=== PATIENT | female | born 1990 | race Caucasian/White ===

== ENCOUNTER 2017-05-29 13:14 | Emergency (ER) | payer OTHER ==
[~2017-05-29] VITALS: Ht 160 cm; Wt 87.0 kg
--- NOTE | 2017-05-29 13:43 | EMERGENCY ROOM VISIT NOTE ---
ED Visit Note First contact with patient: 13:39 CHIEF COMPLAINT: Body Fluid exposure HPI: This 26-year-old female presents to the Emergency Department ambulatory for evaluation of a body fluid exposure when she was accidentally stuck with a dirty solid suture needle. Patient was suturing. The wound has already been cleansed. Bleeding is controlled. They deny numbness, tingling, or loss of motion. Source patient is known. History of the source patient is not known at this time. The patient works at [employer]. They have had the hepatitis B. vaccination, and titers are unknown. They believe their tetanus is up-to-date. Pain is 0/10. ALLERGIES: clindamycin MEDICATIONS: celexa PMH: none SOCIAL HISTORY: the patient does not smoke. She is employed by [employer] Physical Exam: VITALS: Nursing notes reviewed and vitals are stable. GENERAL: The 26-year-old female, in no acute distress, well developed, well nourished. SKIN: Warm and dry with good turgor. There are no abrasions. There is a solitary puncture ashok present at the distal left thumb. Bleeding is controlled. No edema. Capillary refill is 2+. MUSCULOSKELETAL: Patient has full active range of motion of the hand. Normal strength. NEURO: Gross sensation is intact across the hand. ED COURSE: I examined the patient. Option of HIV, hepatitis C, and hepatitis B testing was discussed with the patient. The risks, benefits, purpose, and limitations of the tests were explained to the patient and all of their questions were answered. They elected to proceed. I did perform pretest counseling and the appropriate consent forms were signed. Patient was given information on prevention of exposure and transmission as well as hospital confidentiality. Blood exposure handout was provided. Patient elected to decline HIV prophylaxis at this time. They will follow-up with worker's comp. Wound care instructions were provided. I discussed the case with Rashmi Yanes, employee health. In the past non [facility] providers were able to follow up with [facility] employee health. Also, an algorithm from Dr. Garcia found hanging in D pod dictation states the same. However, she stated that Rebecca will need to follow up with an employer approved worker's compensation doctor and cannot follow up with employee health. Rebecca was advised of this. The orders were placed in the computer. The source patient tested negative for HIV, Hepatitis C. Impression: Body fluid exposure Plan: Follow up with employee health for further evaluation, treatment, and test results. Vital Signs Date Time Temp Pulse Resp B/P (MAP) Pulse Ox O2 Delivery O2 Flow Rate FiO2 05/29/17 13:50 37.0 79 20 135/79 98 Room Air Laboratory Results Test 05/29/17 13:56 Hepatitis B Surface Antibody POS Hepatitis C Antibody NEG (NEG) HIV (1&2) Ab and P24 Ag, 4th Gener NEG (NEG) Departure Information Impression Primary Impression: Needle stick injury Dispostion Home / Self-Care Condition GOOD Referrals No Doctor, Assigned (PCP) Patient Instructions [facility] Additional Instructions Follow up with employee health for further evaluation, treatment, and test results.
[2017-05-29 13:50] VITALS: BP 135/79; PULSE 79; TEMP 37; O2SAT 98; Ht 160 cm; Wt 87.0 kg
[2017-05-29 15:14] LABS: HEPATITIS B AB POS
== END 2017-05-29 14:28 | disposition home or self-care (01) ==
LOC: EDBD 13:14 → C.ED 13:16 → C.EDD 14:28
DX: S61.032A Puncture wound without foreign body of left thumb without damage to nail, initial encounter (principal); W46.1XXA Contact with contaminated hypodermic needle, initial encounter; Y99.0 Civilian activity done for income or pay; Y92.238 Other place in hospital as the place of occurrence of the external cause; Y93.89 Activity, other specified; Z79.899 Other long term (current) drug therapy

== ENCOUNTER 2022-09-28 07:47 | Inpatient (IN) ==
[2022-09-28] MEDS ORDERED: OXYTOCIN 30 UNITS/500 ML BAG IV PRN ×2 (07:52)
[2022-09-28] MEDS ORDERED: LIDOCAINE 1% LOCAL 20 ML VIAL INFIL PRN (07:52)
[2022-09-28 08:20] LABS: Hemoglobin 10.9 g/dl (12.0-16.0); Mean Corpuscular Hemoglobin 30.1 pg (25.0-34.0); Mean Corpuscular Hgb Conc 34.1 g/dL (32.0-36.0); Mean Corpuscular Volume 88.4 fL (80.0-100.0); Mean Platelet Volume 10.3 fL (9.4-12.3); Platelet Count 220 K/uL (130-400); RDW Coefficient of Variation 12.9 % (11.5-14.5); RDW Standard Deviation 41.3 fL (36.4-46.3); Red Blood Count 3.62 M/uL (3.93-5.22); White Blood Count 8.66 K/ul (4.8-10.8)
[2022-09-28] MEDS: LACTATED RINGER'S 1,000 ML IV PRN ×4 (08:25→22:59)
--- NOTE | 2022-09-28 10:45 | History & Physical Report ---
Date of Service September 28, 2022 Assessment & Plan (1) Supervision of normal first : Plan: IUP at 40+ weeks for IOL because of post term cervical balloon placed successfully pitocin augmentatio has been started epidural analgesia if or when requested anticipate vaginal Admission and Anticipated Discharge Date Admission Date: September 28, 2022 History of Present Illness Primary Care Provider: Yaima Norbert Swan Patient is a 31 yo female EDC09/24/22 who presents at 40 4/7 weeks for IOL because of post term . complicated by diet controlled GDM. growth scans have been AGA. GBS -negative. Allergies Allergy/AdvReac Type Severity Reaction Status Date / Time clindamycin Allergy esophagitis Verified 09/27/22 15:38 Home Medications Medication Instructions Recorded Confirmed Type prenat.vits,campos,[id number] 1 tab PO DAILY 10/26/21 09/27/22 History calcium carbonate [Tums] PO PRN 02/07/22 09/27/22 History ondansetron HCl 4 mg tablet 4 mg PO Q6H PRN nausea and 03/13/22 09/27/22 Rx vomiting #20 tabs acetone (urine) test (Ketone Urine #50 ea 05/11/22 09/27/22 Rx Test strips) blood sugar diagnostic (OneTouch #150 ea 05/11/22 09/27/22 Rx Verio test strips) blood-glucose meter (OneTouch #1 ea 05/11/22 09/27/22 Rx Verio Flex Meter) lancets 33 gauge (OneTouch Delica #150 ea 05/11/22 09/27/22 Rx Lancets) Patient History Medical History (Updated 09/28/22 @ 09:14 by Estelle Trinidad RN) Gestational diabetes mellitus (GDM) History of chicken pox Surgical History Status post advanced surface ablation photorefractive keratectomy (PRK) [place] teeth extracted Family History Grandmother (Maternal) Colorectal cancer Denies family history of Ovarian cancer Breast cancer Social History Smoking Status: Never smoker Second Hand Exposure: No; Do You Dip or Chew Tobacco: No; Tobacco Cessation Education Requested by Patient: No Hx Alcohol Use: No Hx Substance Use: No Preferred Language: Tajik Communication Ability: Effective Pre School Teacher Required: No Beliefs That Will Affect Care: None marital status: marital status details: Celso Guzman (27) [phone] Current Living Situation: Spouse Current Living Situation Comment: Celso- current occupational status: employed current occupation: [employer] Other Information That Helps Us Care for You: No Feels Safe at Home: Yes Safety Concerns: Feels Safe At This Time Assistive Devices: None Review of Systems All systems reviewed & are unremarkable except as noted in HPI & below Physical Exam Constitutional: WD/WN, vitals as above Psychiatric: A+Ox3, euthymic affect Genitourinary: OB Exam Abdomen: + vertex, + estimated weight (7-8 pounds) and + irregular contractions Manual OB Exam: + cervical dilation fingertip, + cervical effacement 60% and + station -2 OB Exam Monitor Tracing: + external FHT monitor used, + external uterine monitor used, + category I and + normal FHT variability cervical balloon placed under direct visualization through the internal os without difficulty. 40cc of sterile water placed in the balloon. the balloon was then placed on traction and attached to her left thigh. she tolerated the procedure well. Results & Data ([facility]) Vital Signs (Past 12 Hours) Vital Signs Temp Pulse Resp BP 09/28/22 08:48 94 H 120/80 09/28/22 07:58 100 H 145/97 H 09/28/22 08:07 98.2 F 18 Coding Level of Care Code None Diagnoses Supervision of normal first Z34.00
[2022-09-28] MEDS ORDERED: BUPIVACAINE 0.25% 30 ML VIAL ONE (20:38)
[2022-09-28] MEDS ORDERED: fentaNYL citrate 100 MCG/2 ML VIAL ONE (20:38)
[2022-09-28] MEDS ORDERED: ePHEDrine sulfate 50 MG/ML AMP ONE (20:38)
[2022-09-28] MEDS ORDERED: LIDOCAINE 2%/EPINEPHRINE 1:200,000 20 ML SDV ONE (20:38)
[2022-09-28] MEDS ORDERED: SODIUM CHLORIDE 0.9% INJ 10 ML VIAL ONE (20:38)
[2022-09-28] MEDS ORDERED: fentaNYL 2MCG/ML ROPIVACAINE 1.25MG/ML 100 ML BAG EPI ONE (20:39)
[2022-09-28] MEDS ORDERED: ONDANSETRON INJ 2 MG/ML 2 ML VIAL IV STA (20:57)
[2022-09-28] MEDS ORDERED: ONDANSETRON INJ 2 MG/ML 2 ML VIAL ONE (21:01)
--- NOTE | 2022-09-28 22:11 | Anesthesiology Consultation ---
Date of Service September 28, 2022 Assessment & Plan ASA ASA2 Proposed Anesthesia Anesthesia Type: Labor Epidural Risk / Benefits Reviewed With: PT / POA / Parent / Guardian, Accepts Plan and Informed Consent Obtained History Height/Weight Height: 5 ft 3 in Weight: 105.687 kg Allergies Allergy/AdvReac Type Severity Reaction Status Date / Time clindamycin Allergy esophagitis Verified 09/27/22 15:38 Medications Home Medications Medication Instructions Recorded Confirmed Last Taken prenat.vits,campos,[id number] 1 tab PO DAILY 10/26/21 09/27/22 Unknown calcium carbonate [Tums] PO PRN 02/07/22 09/27/22 Unknown ondansetron HCl 4 mg tablet 4 mg PO Q6H PRN nausea and 03/13/22 09/27/22 Unknown vomiting #20 tabs acetone (urine) test (Ketone Urine #50 ea 05/11/22 09/27/22 Unknown Test strips) blood sugar diagnostic (OneTouch #150 ea 05/11/22 09/27/22 Unknown Verio test strips) blood-glucose meter (OneTouch #1 ea 05/11/22 09/27/22 Unknown Verio Flex Meter) lancets 33 gauge (OneTouch Delica #150 ea 05/11/22 09/27/22 Unknown Lancets) Active Medications Generic Name Dose Route Start Last Admin Trade Name Freq PRN Reason Stop Dose Admin Oxytocin 30 units in 500 mls @ 20 mls/hr 09/28/22 07:52 09/28/22 19:29 Pitocin IV 09/30/22 07:51 1.2 units/hr .Q24H PRN 20 mls/hr Labor Induction/Augmentation Titration Protocol 1.2 UNITS/HR Lactated Ringer's 1,000 mls @ 125 mls/hr 09/28/22 07:52 09/28/22 22:04 Lr IV 09/30/22 07:51 Infused .Q8H PRN Infusion L&D Protocol Protocol Past Medical History Medical History Gestational diabetes mellitus (GDM) History of chicken pox Exercise / Class Metabolic Activity II 4-5 Yardwork/Stairs/Walk up hill Past Family History Family History Grandmother (Maternal) Colorectal cancer Denies family history of Ovarian cancer Breast cancer Past Surgical History Surgical History Status post advanced surface ablation photorefractive keratectomy (PRK) [place] teeth extracted Past Anesthesia History No Hx of Anesthesia Complications and No Family Hx of Anesthesia Complications History of PONV No Hx of PONV and No Hx of Motion Sickness Social History Smoking Status: Never smoker Do You Dip or Chew Tobacco: No Hx Alcohol Use: No Hx Substance Use: No Review of Systems denies fever/cough/ colds/ chest pain/ SOB/ MARTINEZ denies MARTINEZ Physical Exam Vital Signs Last Vital Signs Temp 36.4 C L 09/28/22 21:35 Pulse 114 H 09/28/22 22:09 Resp 16 09/28/22 21:58 BP 113/61 09/28/22 22:03 Pulse Ox 100 09/28/22 22:09 ENMT Mouth: no TMJ abnormality and no dentition abnormality Thyromental Distance: > or= 3.5 Finger Breadths Mallampati Class: II Neck neck extension not limited Respiratory normal respiratory effort; no respiratory distress Auscultation: lungs clear to auscultation bilaterally Cardiovascular Rate/Rhythm: regular rate and regular rhythm Neurologic moves all extremities Psychiatric Orientation: alert and oriented x 3 Testing Laboratory Results 09/28/22 08:02 Blood Type O Positive 09/28/22 08:02 Antibody Screen NEGATIVE 09/28/22 08:02
[2022-09-28] MEDS ORDERED: ePHEDrine sulfate 50 MG/ML AMP IV PRN (22:12)
[2022-09-28] MEDS ORDERED: ONDANSETRON INJ 2 MG/ML 2 ML VIAL IV PRN (22:12)
[2022-09-28] MEDS ORDERED: NALOXONE HCL 0.4 MG/1 ML VIAL/CARP IV PRN (22:12)
[2022-09-28] MEDS ORDERED: fentaNYL 2MCG/ML ROPIVACAINE 1.25MG/ML 100 ML BAG EPI PRN (22:12)
[2022-09-28] MEDS ORDERED: diphenhydrAMINE 50 MG/ML VIAL IV PRN (22:12)
[2022-09-28] MEDS ORDERED: NALOXONE HCL 1 MG in SODIUM CHLORIDE 0.9% 1000ML 1,000 ML IV PRN (22:12)
[2022-09-28] MEDS ORDERED: NALBUPHINE HCL INJ 10 MG/ML AMP IV PRN (22:12)
[2022-09-29] MEDS: LACTATED RINGER'S 1,000 ML IV PRN (05:56)
[2022-09-29] MEDS ORDERED: LACTATED RINGER'S 1,000 ML IV SCH ×2 (07:15→16:00)
--- NOTE | 2022-09-29 07:18 | Labor Progress Brief Note ---
Date of Service September 29, 2022 Subjective After the patient has been pushing for 2 hours there is minimal descensus of the head. Patient is quite painful with her contractions and I feel she has not been able to push effectively because of her pain. A trial of vacuum was attempted after emptying her bladder for a small amount of urine, but through 3 contractions the head did not move at all. At this point calling arrest of descent. Discussed the options of continue to push with the patient and her hu sband in reducing her epidural versus proceeding with section at this time. They would like to proceed with section procedure and its risks were reviewed with the patient and all questions were answered to their satisfaction. Assessment & Plan Admission and Anticipated Discharge Date Admission Date: September 28, 2022 Physical Exam Constitutional: WD/WN, vitals as above Psychiatric: A+Ox3, euthymic affect Results & Data ([facility]) Vital Signs (Past 12 Hours) Vital Signs Temp Pulse Resp BP Pulse Ox 09/29/22 07:09 117 H 99 09/29/22 07:05 112 H 131/80 09/29/22 07:04 110 H 98 09/29/22 06:59 110 H 99 09/29/22 06:54 104 H 98 09/29/22 06:49 104 H 142/89 H 97 09/29/22 06:44 20 09/29/22 06:44 112 H 20 146/86 H 98 09/29/22 06:39 96 H 99 09/29/22 06:35 103 H 135/104 H 94 09/29/22 06:34 96 H 100 09/29/22 06:29 93 H 100 09/29/22 06:24 96 H 100 09/29/22 06:19 102 H 98 09/29/22 06:20 102 H 142/91 H 09/29/22 06:14 104 H 100 09/29/22 06:09 107 H 100 09/29/22 06:05 100 H 155/63 H 09/29/22 06:04 103 H 100 09/29/22 05:59 105 H 96 09/29/22 05:54 96 H 100 09/29/22 05:53 100 H 94 09/29/22 05:49 104 H 100 09/29/22 05:50 94 H 130/85 09/29/22 05:44 103 H 99 09/29/22 05:39 106 H 100 09/29/22 05:35 103 H 137/105 H 09/29/22 05:34 108 H 100 09/29/22 05:29 106 H 99 09/29/22 05:24 110 H 100 09/29/22 05:21 104 H 138/79 09/29/22 05:19 104 H 99 09/29/22 05:14 99 H 100 09/29/22 05:10 20 09/29/22 05:10 98.1 F 20 09/29/22 05:09 109 H 99 09/29/22 05:06 98 H 137/76 09/29/22 05:04 117 H 99 09/29/22 04:59 113 H 99 09/29/22 04:54 109 H 100 09/29/22 04:49 109 H 100 09/29/22 04:50 102 H 133/78 09/29/22 04:44 104 H 100 09/29/22 04:39 100 H 100 09/29/22 04:34 112 H 133/82 99 09/29/22 04:29 113 H 99 09/29/22 04:24 113 H 100 09/29/22 04:19 112 H 20 133/83 98 09/29/22 04:14 110 H 100 09/29/22 04:11 20 09/29/22 04:11 98.1 F 20 09/29/22 04:09 107 H 100 09/29/22 04:04 102 H 130/77 99 09/29/22 03:59 114 H 98 09/29/22 03:54 112 H 100 09/29/22 03:49 109 H 131/76 100 09/29/22 03:44 110 H 98 09/29/22 03:43 114 H 91 09/29/22 03:39 114 H 100 09/29/22 03:34 103 H 99 09/29/22 03:35 102 H 121/70 09/29/22 03:29 102 H 99 09/29/22 03:24 102 H 99 09/29/22 03:20 100 H 129/73 09/29/22 03:19 98 H 100 09/29/22 03:14 108 H 99 09/29/22 03:09 118 H 100 09/29/22 03:04 105 H 115/60 100 09/29/22 02:59 107 H 100 09/29/22 02:54 117 H 100 09/29/22 02:50 104 H 119/63 09/29/22 02:49 105 H 100 09/29/22 02:44 103 H 100 09/29/22 02:41 112 H 92 09/29/22 02:39 97 H 99 09/29/22 02:36 107 H 140/63 09/29/22 02:34 104 H 98 09/29/22 02:29 104 H 99 09/29/22 02:24 109 H 97 09/29/22 02:19 107 H 16 121/63 97 09/29/22 02:14 97 H 98 09/29/22 02:09 101 H 97 09/29/22 02:04 93 H 98 09/29/22 02:05 117 H 133/74 09/29/22 01:59 95 H 97 09/29/22 01:54 101 H 98 09/29/22 01:49 96 H 111/59 L 98 09/29/22 01:44 96 H 98 09/29/22 01:39 93 H 98 09/29/22 01:35 90 114/62 09/29/22 01:34 103 H 97 09/29/22 01:29 93 H 97 09/29/22 01:24 100 H 97 09/29/22 01:19 92 H 104/56 L 98 09/29/22 01:14 90 97 09/29/22 01:09 94 H 97 09/29/22 01:04 85 98 09/29/22 01:05 84 16 100/55 L 09/29/22 00:59 91 H 97 09/29/22 00:54 92 H 97 09/29/22 00:51 81 101/54 L 09/29/22 00:49 89 98 09/29/22 00:44 82 98 09/29/22 00:39 98 H 99 09/29/22 00:34 83 107/56 L 98 09/29/22 00:29 84 98 09/29/22 00:24 96 H 99 09/29/22 00:20 85 111/57 L 09/29/22 00:19 84 98 09/29/22 00:14 90 98 09/29/22 00:09 89 98 09/29/22 00:07 16 09/29/22 00:07 97.9 F 16 09/29/22 00:04 92 H 99 09/29/22 00:05 91 H 122/72 09/28/22 23:59 73 98 09/28/22 23:54 110 H 100 09/28/22 23:49 82 96/55 L 98 09/28/22 23:44 86 98 09/28/22 23:39 89 97 09/28/22 23:34 81 94/54 L 97 09/28/22 23:29 86 98 09/28/22 23:24 85 97 09/28/22 23:19 80 91/54 L 98 09/28/22 23:14 80 98 09/28/22 23:09 88 99 09/28/22 23:06 87 103/59 L 09/28/22 23:04 16 09/28/22 23:04 97.9 F 85 16 98 09/28/22 22:59 90 99 09/28/22 22:54 99 H 98 09/28/22 22:49 92 H 108/59 L 98 09/28/22 22:44 92 H 97 09/28/22 22:39 88 98 09/28/22 22:35 87 107/59 L 09/28/22 22:34 89 98 09/28/22 22:29 87 97 09/28/22 22:24 91 H 98 09/28/22 22:19 16 09/28/22 22:19 95 H 16 104/57 L 98 09/28/22 22:14 103 H 98 09/28/22 22:09 114 H 100 09/28/22 22:04 85 100 09/28/22 22:03 100 H 113/61 09/28/22 21:59 95 H 100 09/28/22 21:58 85 16 109/56 L 09/28/22 21:54 100 09/28/22 21:54 106 H 09/28/22 21:54 98 H 94/51 L 09/28/22 21:51 94 H 92/51 L 09/28/22 21:49 98 09/28/22 21:49 86 09/28/22 21:49 90 107/57 L 09/28/22 21:44 72 100 09/28/22 21:45 75 96/61 L 09/28/22 21:39 101 H 109/58 L 100 09/28/22 20:58 97.7 F 09/28/22 21:35 97.5 F L 09/28/22 21:34 108 H 100 09/28/22 21:33 98 H 115/63 09/28/22 21:31 96 H 18 116/58 L 09/28/22 21:29 93 H 100 09/28/22 21:28 87 18 120/73 09/28/22 21:24 99 H 100 09/28/22 21:25 81 121/66 09/28/22 21:22 18 09/28/22 21:22 101 H 18 134/87 09/28/22 21:19 99 H 100 09/28/22 21:18 90 133/80 09/28/22 21:14 99 H 94 09/28/22 21:09 90 99 09/28/22 21:04 94 H 100 09/28/22 20:59 98 H 100 09/28/22 20:54 90 100 09/28/22 20:49 100 09/28/22 20:49 89 09/28/22 20:49 81 123/67 09/28/22 20:24 81 114/70 09/28/22 19:19 18 09/28/22 19:19 82 18 113/77 Coding Level of Care Code None
--- NOTE | 2022-09-29 07:38 | Anesthesiology Consultation ---
Date of Service September 29, 2022 Assessment & Plan Chart Review Chart Review: Acceptable Risk for Surgery Consults Requested none ASA ASA2E Proposed Anesthesia Anesthesia Type: Spinal Risk / Benefits Reviewed With: PT / POA / Parent / Guardian, Accepts Plan and Informed Consent Obtained Additional Comments: The epidural appears to be inadequately controlling pain. The patient stated having back and lower abdominal pain. I spoke to the patient about the potential of a high spinal. I discussed the risks and benefits of a spinal vs general anesthetic. The patient and family member were understanding. History Surgery Operation Date: 09/29/22 07:45 Proposed Procedures p Section in LD - Yeny Simons MD, FACOG Height/Weight Height: 5 ft 3 in Weight: 105.687 kg Allergies Allergy/AdvReac Type Severity Reaction Status Date / Time clindamycin Allergy esophagitis Verified 09/27/22 15:38 Medications Home Medications Medication Instructions Recorded Confirmed Last Taken prenat.vits,campos,[id number] 1 tab PO DAILY 10/26/21 09/27/22 Unknown calcium carbonate [Tums] PO PRN 02/07/22 09/27/22 Unknown ondansetron HCl 4 mg tablet 4 mg PO Q6H PRN nausea and 03/13/22 09/27/22 Unknown vomiting #20 tabs acetone (urine) test (Ketone Urine #50 ea 05/11/22 09/27/22 Unknown Test strips) blood sugar diagnostic (OneTouch #150 ea 05/11/22 09/27/22 Unknown Verio test strips) blood-glucose meter (OneTouch #1 ea 05/11/22 09/27/22 Unknown Verio Flex Meter) lancets 33 gauge (OneTouch Delica #150 ea 05/11/22 09/27/22 Unknown Lancets) Active Medications Generic Name Dose Route Start Last Admin Trade Name Freq PRN Reason Stop Dose Admin Oxytocin 30 units in 500 mls @ 0 mls/hr 09/28/22 07:52 09/29/22 07:01 Pitocin IV 09/30/22 07:51 0 units/hr .Q0M PRN 0 mls/hr Labor Induction/Augmentation Titration Protocol 0 UNITS/HR Lactated Ringer's 1,000 mls @ 125 mls/hr 09/28/22 07:52 09/29/22 06:16 Lr IV 09/30/22 07:51 125 mls/hr .Q8H PRN Infusion L&D Protocol Protocol Ondansetron HCl 4 mg 09/28/22 22:12 09/29/22 04:05 Ondansetron Inj 2 Mg/Ml 2 Ml Vial IV 09/29/22 22:11 4 mg Q6H PRN Administration Nausea &/or Vomiting Ropivacaine 100 ml 09/28/22 22:12 09/29/22 02:41 Fentanyl 2mcg/Ml Ropivacaine 1.25mg/Ml 100 Ml Bag EPI 09/29/22 22:11 100 ml PRN PRN Administration Pain R/T Labor Protocol NPO Date Last Intake of Fluids: 09/29/22 Time Last Intake of Fluids: 00:00 Date Last Intake of Solids: 09/29/22 Time Last Intake of Solids: 00:00 Past Medical History Medical History Gestational diabetes mellitus (GDM) History of chicken pox Exercise / Class Metabolic Activity II 4-5 Yardwork/Stairs/Walk up hill Past Family History Family History Grandmother (Maternal) Colorectal cancer Denies family history of Ovarian cancer Breast cancer Past Surgical History Surgical History Status post advanced surface ablation photorefractive keratectomy (PRK) [place] teeth extracted Past Anesthesia History No Hx of Anesthesia Complications and No Family Hx of Anesthesia Complications History of PONV No Hx of PONV and No Hx of Motion Sickness Social History Smoking Status: Never smoker Do You Dip or Chew Tobacco: No Hx Alcohol Use: No Hx Substance Use: No Physical Exam Vital Signs Last Vital Signs Temp 98.1 F 09/29/22 05:10 Pulse 111 H 09/29/22 07:29 Resp 20 09/29/22 06:44 BP 131/66 09/29/22 07:20 Pulse Ox 97 09/29/22 07:29 ENMT Mouth: no dentition abnormality Thyromental Distance: > or= 3.5 Finger Breadths Mallampati Class: II Neck normal visual inspection Respiratory normal respiratory effort Auscultation: lungs clear to auscultation bilaterally Cardiovascular Rate/Rhythm: regular rate and regular rhythm Testing Laboratory Results 09/28/22 08:02 Blood Type O Positive 09/28/22 08:02 Antibody Screen NEGATIVE 09/28/22 08:02
[2022-09-29] MEDS ORDERED: MoRPHine SULFATE PF 1 MG/ML 10 ML AMP/VIAL ONE (07:39)
[2022-09-29] MEDS ORDERED: fentaNYL citrate 100 MCG/2 ML VIAL ONE (07:39)
[2022-09-29] MEDS ORDERED: OXYTOCIN 10 UNITS/ML 10ML VIAL ONE (07:42)
[2022-09-29] MEDS ORDERED: CITRIC ACID/SODIUM CITRATE 15 ML UDC PO ONE (07:48)
[2022-09-29] MEDS ORDERED: PHENYLEPHRINE 100MCG/ML 5ML SYR ONE (08:10)
[2022-09-29] MEDS ORDERED: ONDANSETRON INJ 2 MG/ML 2 ML VIAL ONE (08:18)
[2022-09-29] MEDS ORDERED: OXYTOCIN 10 UNITS/ML 10ML VIAL IM ONE (08:28)
[2022-09-29] MEDS ORDERED: diphenhydrAMINE 50 MG/ML VIAL IV PRN (09:01)
[2022-09-29] MEDS ORDERED: MEPERIDINE HCL 25 MG/ML CARP/VIAL IV PRN (09:01)
[2022-09-29] MEDS ORDERED: LACTATED RINGER'S 500 ML IV PRN (09:01)
[2022-09-29] MEDS ORDERED: MoRPHine SULFATE PF 1 MG/ML 10 ML AMP/VIAL INT SPINAL ONE (09:01)
[2022-09-29] MEDS ORDERED: ePHEDrine sulfate 50 MG/ML AMP IV PRN (09:01)
[2022-09-29] MEDS ORDERED: ONDANSETRON INJ 2 MG/ML 2 ML VIAL IV PRN (09:01)
[2022-09-29] MEDS ORDERED: NALOXONE HCL 0.08 MG in SYRINGE 1.8 ML IV PRN (09:01)
[2022-09-29] MEDS ORDERED: NALOXONE HCL 1 MG in SODIUM CHLORIDE 0.9% 1000ML 1,000 ML IV PRN (09:01)
[2022-09-29] MEDS ORDERED: NALBUPHINE HCL INJ 10 MG/ML AMP IV PRN (09:01)
[2022-09-29] MEDS ORDERED: NALOXONE HCL 0.4 MG/1 ML VIAL/CARP IV PRN (09:01)
--- NOTE | 2022-09-29 09:02 | Anesthesia Procedure Note ---
Date of Service September 29, 2022 Anesthesia Post Epidural Note Vital Signs Vital Signs: Temp Pulse Resp BP Pulse Ox 98.1 F 113 H 20 132/78 97 09/29/22 05:10 09/29/22 07:54 09/29/22 06:44 09/29/22 07:51 09/29/22 07:54 Pain Intensity Bilateral Lower Abdomen: Pain Intensity: 5 Notes Mental Status: alert / awake / arousable and participated in evaluation Nausea / Vomiting: adequately controlled Pain: adequately controlled Airway Patency, RR, SpO2: stable & adequate BP & HR: stable & adequate Hydration State: stable & adequate Neuraxial Anesthesia: was administered and sensory block is resolving Anesthetic Complications: no major complications apparent and Pt Satisfied with anesthetic care Epidural: Removed without complications and With tip intact
[2022-09-29] MEDS ORDERED: NO NARCOTICS OR SEDATIVES SCH (09:15)
[2022-09-29] MEDS ORDERED: DC INTRASPINAL MORPHINE SCH (09:15)
[2022-09-29] MEDS ORDERED: SODIUM CHLORIDE 0.9% 1000ML 1,000 ML IV SCH (09:15)
--- NOTE | 2022-09-29 09:15 | Post Operative Brief Note ---
[facility] Immediate Post Op with CF Date of Surgery September 29, 2022 Pre & Post Diagnosis Operation Date: 09/29/22 07:45 Pre-Op Diagnosis: INDUCTION; failed vacuum; arrest of descent I identified the patient and participated in the time-out.: Yes Procedure Operation Date: 09/29/22 07:45 Actual Procedures p Section in LD; delivery of live female at 0822 - Siomara Camacho MD Surgeon Yeny Simons MD, FACOG [employer] Siomara Camacho MD Estimated Blood Loss 500 Findings Consistent with Post-Op Diagnosis Drains Jett Catheter (inserted in labor room; concentrated yellow urine) Anesthesia Type Spinal Complications none Disposition Accompanied Patient To Recovery: Yes
--- NOTE | 2022-09-29 09:40 | Anesthesiology Progress Note ---
Date of Service September 29, 2022 Anesthesia Post Procedure Vital Signs Vital Signs: Temp Pulse Resp BP Pulse Ox 09/29/22 09:35 92 H 123/77 09/29/22 09:34 84 100 09/29/22 09:29 93 H 97 09/29/22 09:24 89 100 09/29/22 09:19 90 123/76 100 09/29/22 07:54 113 H 97 09/29/22 07:53 100 H 88 L 09/29/22 07:51 116 H 132/78 09/29/22 07:49 102 H 99 09/29/22 07:44 110 H 97 09/29/22 07:39 107 H 97 09/29/22 07:34 107 H 98 09/29/22 07:35 111 H 148/96 H 09/29/22 07:29 111 H 97 09/29/22 07:24 107 H 98 09/29/22 07:20 103 H 131/66 09/29/22 07:19 102 H 98 09/29/22 07:14 109 H 98 09/29/22 07:09 117 H 99 09/29/22 07:05 112 H 131/80 09/29/22 07:04 110 H 98 09/29/22 06:59 110 H 99 09/29/22 06:54 104 H 98 09/29/22 06:49 104 H 142/89 H 97 09/29/22 06:44 20 09/29/22 06:44 112 H 20 146/86 H 98 09/29/22 06:39 96 H 99 09/29/22 06:35 103 H 135/104 H 94 09/29/22 06:34 96 H 100 09/29/22 06:29 93 H 100 09/29/22 06:24 96 H 100 09/29/22 06:19 102 H 98 09/29/22 06:20 102 H 142/91 H 09/29/22 06:14 104 H 100 09/29/22 06:09 107 H 100 09/29/22 06:05 100 H 155/63 H 09/29/22 06:04 103 H 100 09/29/22 05:59 105 H 96 09/29/22 05:54 96 H 100 09/29/22 05:53 100 H 94 09/29/22 05:49 104 H 100 09/29/22 05:50 94 H 130/85 09/29/22 05:44 103 H 99 09/29/22 05:39 106 H 100 09/29/22 05:35 103 H 137/105 H 09/29/22 05:34 108 H 100 09/29/22 05:29 106 H 99 09/29/22 05:24 110 H 100 09/29/22 05:21 104 H 138/79 09/29/22 05:19 104 H 99 09/29/22 05:14 99 H 100 09/29/22 05:10 20 09/29/22 05:10 98.1 F 20 09/29/22 05:09 109 H 99 09/29/22 05:06 98 H 137/76 09/29/22 05:04 117 H 99 09/29/22 04:59 113 H 99 09/29/22 04:54 109 H 100 09/29/22 04:49 109 H 100 09/29/22 04:50 102 H 133/78 09/29/22 04:44 104 H 100 09/29/22 04:39 100 H 100 09/29/22 04:34 112 H 133/82 99 09/29/22 04:29 113 H 99 09/29/22 04:24 113 H 100 09/29/22 04:19 112 H 20 133/83 98 09/29/22 04:14 110 H 100 09/29/22 04:11 20 09/29/22 04:11 98.1 F 20 09/29/22 04:09 107 H 100 09/29/22 04:04 102 H 130/77 99 09/29/22 03:59 114 H 98 09/29/22 03:54 112 H 100 09/29/22 03:49 109 H 131/76 100 09/29/22 03:44 110 H 98 09/29/22 03:43 114 H 91 09/29/22 03:39 114 H 100 09/29/22 03:34 103 H 99 09/29/22 03:35 102 H 121/70 09/29/22 03:29 102 H 99 09/29/22 03:24 102 H 99 09/29/22 03:20 100 H 129/73 09/29/22 03:19 98 H 100 09/29/22 03:14 108 H 99 09/29/22 03:09 118 H 100 09/29/22 03:04 105 H 115/60 100 09/29/22 02:59 107 H 100 09/29/22 02:54 117 H 100 09/29/22 02:50 104 H 119/63 09/29/22 02:49 105 H 100 09/29/22 02:44 103 H 100 09/29/22 02:41 112 H 92 09/29/22 02:39 97 H 99 09/29/22 02:36 107 H 140/63 09/29/22 02:34 104 H 98 09/29/22 02:29 104 H 99 09/29/22 02:24 109 H 97 09/29/22 02:19 107 H 16 121/63 97 09/29/22 02:14 97 H 98 09/29/22 02:09 101 H 97 09/29/22 02:04 93 H 98 09/29/22 02:05 117 H 133/74 09/29/22 01:59 95 H 97 09/29/22 01:54 101 H 98 09/29/22 01:49 96 H 111/59 L 98 09/29/22 01:44 96 H 98 09/29/22 01:39 93 H 98 09/29/22 01:35 90 114/62 09/29/22 01:34 103 H 97 09/29/22 01:29 93 H 97 09/29/22 01:24 100 H 97 09/29/22 01:19 92 H 104/56 L 98 09/29/22 01:14 90 97 09/29/22 01:09 94 H 97 09/29/22 01:04 85 98 09/29/22 01:05 84 16 100/55 L 09/29/22 00:59 91 H 97 09/29/22 00:54 92 H 97 09/29/22 00:51 81 101/54 L 09/29/22 00:49 89 98 09/29/22 00:44 82 98 09/29/22 00:39 98 H 99 09/29/22 00:34 83 107/56 L 98 09/29/22 00:29 84 98 09/29/22 00:24 96 H 99 09/29/22 00:20 85 111/57 L 09/29/22 00:19 84 98 09/29/22 00:14 90 98 09/29/22 00:09 89 98 09/29/22 00:07 16 09/29/22 00:07 97.9 F 16 09/29/22 00:04 92 H 99 09/29/22 00:05 91 H 122/72 09/28/22 23:59 73 98 09/28/22 23:54 110 H 100 09/28/22 23:49 82 96/55 L 98 09/28/22 23:44 86 98 09/28/22 23:39 89 97 09/28/22 23:34 81 94/54 L 97 09/28/22 23:29 86 98 09/28/22 23:24 85 97 09/28/22 23:19 80 91/54 L 98 09/28/22 23:14 80 98 09/28/22 23:09 88 99 09/28/22 23:06 87 103/59 L 09/28/22 23:04 16 09/28/22 23:04 97.9 F 85 16 98 09/28/22 22:59 90 99 09/28/22 22:54 99 H 98 09/28/22 22:49 92 H 108/59 L 98 09/28/22 22:44 92 H 97 09/28/22 22:39 88 98 09/28/22 22:35 87 107/59 L 09/28/22 22:34 89 98 09/28/22 22:29 87 97 09/28/22 22:24 91 H 98 09/28/22 22:19 16 09/28/22 22:19 95 H 16 104/57 L 98 09/28/22 22:14 103 H 98 09/28/22 22:09 114 H 100 09/28/22 22:04 85 100 09/28/22 22:03 100 H 113/61 09/28/22 21:59 95 H 100 09/28/22 21:58 85 16 109/56 L 09/28/22 21:54 100 09/28/22 21:54 106 H 09/28/22 21:54 98 H 94/51 L 09/28/22 21:51 94 H 92/51 L 09/28/22 21:49 98 09/28/22 21:49 86 09/28/22 21:49 90 107/57 L 09/28/22 21:44 72 100 09/28/22 21:45 75 96/61 L 09/28/22 21:39 101 H 109/58 L 100 09/28/22 20:58 97.7 F 09/28/22 21:35 97.5 F L 09/28/22 21:34 108 H 100 09/28/22 21:33 98 H 115/63 09/28/22 21:31 96 H 18 116/58 L 09/28/22 21:29 93 H 100 09/28/22 21:28 87 18 120/73 09/28/22 21:24 99 H 100 09/28/22 21:25 81 121/66 09/28/22 21:22 18 09/28/22 21:22 101 H 18 134/87 09/28/22 21:19 99 H 100 09/28/22 21:18 90 133/80 09/28/22 21:14 99 H 94 09/28/22 21:09 90 99 09/28/22 21:04 94 H 100 09/28/22 20:59 98 H 100 09/28/22 20:54 90 100 09/28/22 20:49 100 09/28/22 20:49 89 09/28/22 20:49 81 123/67 09/28/22 20:24 81 114/70 09/28/22 19:19 18 09/28/22 19:19 82 18 113/77 09/28/22 18:57 18 09/28/22 18:57 97.7 F 18 09/28/22 18:50 90 116/81 09/28/22 18:18 80 118/79 09/28/22 17:48 84 121/79 09/28/22 17:18 72 121/82 09/28/22 16:48 93 H 119/88 09/28/22 16:30 97.7 F 09/28/22 16:20 82 124/84 09/28/22 15:49 75 119/80 09/28/22 15:18 86 117/78 09/28/22 14:48 85 126/77 09/28/22 14:20 78 116/89 09/28/22 14:19 79 129/88 09/28/22 13:48 83 113/77 09/28/22 13:18 86 129/84 09/28/22 12:55 18 09/28/22 12:55 97.9 F 18 09/28/22 12:54 61 110/64 09/28/22 12:18 82 116/78 09/28/22 11:48 78 119/84 09/28/22 11:18 86 117/77 09/28/22 10:50 87 125/78 Pain Intensity Bilateral Lower Abdomen: Pain Intensity: 5 Transfer of Care Handoff Completed per policy Notes Mental Status: alert / awake / arousable and participated in evaluation Nausea / Vomiting: adequately controlled Pain: adequately controlled Airway Patency, RR, SpO2: stable & adequate BP & HR: stable & adequate Hydration State: stable & adequate Neuraxial Anesthesia: was administered and sensory block is resolving Anesthetic Complications: no major complications apparent and Pt Satisfied with anesthetic care
[2022-09-29] MEDS ORDERED: ACETAMINOPHEN 1,000 MG/100 ML VIAL IV PRN (09:52)
[2022-09-29] MEDS ORDERED: ACETAMINOPHEN 500 MG TAB PO PRN (09:53)
--- NOTE | 2022-09-29 10:05 | Operative Report ---
PG Post Operative Report Pre & Post Diagnosis Operation Date: 09/29/22 07:45 Pre-Op Diagnosis: INDUCTION; failed vacuum; arrest of descent Post-Op Diagnosis: same I identified the patient and participated in the time-out.: Yes Procedure Operation Date: 09/29/22 07:45 Actual Procedures p Section in LD; delivery of live female at 0822 - Siomara Camacho MD Surgeon Yeny Simons MD, FACOG Spa Receptionist Siomara Camacho MD Estimated Blood Loss 400 Findings Consistent with Post-Op Diagnosis Uterus was gravid and consistent with a term in size. Bilateral ovaries and fallopian tubes were grossly normal. There is a tiny sessile fibroid on the left fundus. Specimens placenta to hold Drains Jett to straight drainage- clear urine at the end of the case. Anesthesia Type Spinal Complications none Disposition Accompanied Patient To Recovery: Yes Indications Patient has been induced for postterm . She progressed to full dilation and pushed for 2 hours with no appreciable descent. From +1 station. Patient had poor pain control at this time and was not pushing effectively. Vacuum was attempted through 3 contractions but the presenting part did not descend at all. At that point it was decided that section would be a prudent decision. After discussion with the patient and her and all her questions were answered, consent was signed and they were ready to proceed. Description of Procedure After the patient received adequate subarachnoid block she was prepped and draped in usual sterile fashion. A low transverse skin incision was made with a scalpel and carried the fascia with the same Scalpel. The fascial incision was then extended transversely with Singh scissors. The edges of the fascia were then grasped with Shruthi clamps and the underlying rectus muscles bluntly sharply dissected off of the underlying fascia. The rectus muscles were then bluntly divided in the midline and the underlying peritoneum elevated and entered bluntly. The bladder was then taken down off the anterior surface of the uterus with Metzenbaum scissors and placed behind the bladder blade. Lower uterine segment was entered with a scalpel and extended transversely . The vertex was impacted in the pelvis but was able to be freed up and delivered into the incision with moderate fundal pressure. Rest of the delivered easily. She was vigorous and moving all 4 limbs after stimulation. Cord was clamped and cut and the infant was handed off to the technology program manager and nursery team in attendance. The placenta was then manually removed and the uterus exteriorized and covered with a clean lap sponge. Uterine cavity was then swept for any retained tissue or membranes. Lower edge of the uterine incision was then grasped with T clamps. There is bleeding along the left side of the uterine incision and this was secured with a [id number]-[id number] stitch of 0 Monocryl. The rest of the uterine incision was then closed in a running locking imbricating fashion with 0 Monocryl in 2 layers. 2 bleeding sites along the uterine incision were secured with [id number]-jrgsw stitches of 0 Monocryl. There was a small extension of the incision on the right side of the uterus inferiorly. Up at this point hemostasis was then to be excellent. The po sterior cul-de-sac was suctioned for small amount of fluid. The uterine incision was examined once more and continue to have excellent hemostasis. The gutters were explored and found to be free of any clot or fluid. The rectus muscle were then brought together in the midline with individual stitches of 0 Monocryl. The fascia was reapproximated doing just running stitch of 0 Vicryl. After irrigating the adipose layer, skin edges were reapproximated in a subcuticular manner with 4-0 Vicryl. Mother and infant were doing well after delivery. I attest to the content of the Intraoperative Record and any orders documented therein. Any exceptions are noted below. OB Procedure Charges 99824 (arrest of descent)
[2022-09-29] MEDS: KETOROLAC 30 MG/ML VIAL IV PRN ×2 (10:39→23:29)
[2022-09-29] MEDS ORDERED: FAMOTIDINE 20 MG TAB PO PRN (10:59)
[2022-09-29] MEDS ORDERED: OXYTOCIN 20 UNITS in LACTATED RINGER'S 1,000 ML IV SCH (12:00)
[2022-09-29] MEDS ORDERED: HYDROCORTISONE ACETATE 25 MG SUPP PR PRN (15:49)
[2022-09-29] MEDS ORDERED: DIPHTHERIA/TETANUS/PERTUSSIS 0.5 ML SYR/VIAL IM ONE (15:49)
[2022-09-29] MEDS ORDERED: BENZOCAINE 20% AER SPR 82.5 GM CAN EXT PRN (15:49)
[2022-09-29] MEDS ORDERED: MAGNESIUM HYDROXIDE SUSP 30 ML UDC PO PRN (15:49)
[2022-09-29] MEDS ORDERED: SENNA 8.6 MG TAB PO PRN (15:49)
[2022-09-29] MEDS ORDERED: LACTATED RINGER'S 500 ML IV ONE (18:35)
[2022-09-29] MEDS: SIMETHICONE 80 MG CHEW PO SCH ×2 (18:36→21:02)
[2022-09-29] MEDS: DOCUSATE SODIUM 100 MG CAP PO SCH (21:02)
[2022-09-30] MEDS ORDERED: oxyCODONE/ACETAMINOPHEN 5mg/325mg TAB PO PRN (03:01)
[2022-09-30] MEDS ORDERED: PROMETHAZINE HCL 25 MG in SODIUM CHLORIDE 0.9% 50 ML IV PRN (03:01)
[2022-09-30] MEDS ORDERED: diphenhydrAMINE 50 MG/ML VIAL IV PRN (03:01)
[2022-09-30] MEDS ORDERED: diphenhydrAMINE Capsule 25 MG CAP PO PRN (03:01)
[2022-09-30] MEDS ORDERED: ONDANSETRON INJ 2 MG/ML 2 ML VIAL IV PRN (03:01)
[2022-09-30 06:36] LABS: Basophils # (auto) 0.02 K/uL (0-0.2); Basophils % (auto) 0.2 %; Eosinophils # (auto) 0.18 K/uL (0-0.50); Eosinophils % (auto) 1.6 %; Hematocrit (blood only) 25.7 % (34.1-44.9); Hemoglobin 8.7 g/dl (12.0-16.0); Immature Granulocytes # (auto) 0.07 K/uL (0.00-0.02); Immature Granulocytes % (auto) 0.6 %; Lymphocytes # (auto) 2.27 K/uL (1.2-3.4); Lymphocytes % (auto) 20.3 %; Mean Corpuscular Hemoglobin 30.1 pg (25.0-34.0); Mean Corpuscular Hgb Conc 33.9 g/dL (32.0-36.0); Mean Corpuscular Volume 88.9 fL (80.0-100.0); Mean Platelet Volume 10.2 fL (9.4-12.3); Monocytes # (auto) 0.66 K/uL (0.24-0.82); Monocytes % (auto) 5.9 %; Neutrophils # (auto) 7.98 K/uL (1.4-6.5); Neutrophils % (auto) 71.4 %; Platelet Count 170 K/uL (130-400); RDW Standard Deviation 42.4 fL (36.4-46.3); Red Blood Count 2.89 M/uL (3.93-5.22); White Blood Count 11.18 K/ul (4.8-10.8)
--- NOTE | 2022-09-30 07:12 | Obstetrical Progress Note ---
Date of Service September 30, 2022 Assessment & Plan (1) Encounter for care and examination after delivery: 30 yo POD 1 from pLTCS for arrest of descent, doing well -Meeting all pp milestones, galo just removed so is DTV and needs to pass gas today -O+/rubella immune/ -f/u 6 weeks for appt, continue routine pp care Subjective Ambulation: ambulating normally Passing Gas:: No Diet Tolerance:: regular diet Lochia:: Small Feeding Type:: breast feeding Pain well managed with medication Not yet voided as galo just removed Review of Systems Denies fevers, chills, n/v, SAMPSON, CP, SOB Physical Exam Constitutional WD/WN, vitals as above no acute distress Respiratory normal respiratory effort, lungs clear to auscultation Cardiovascular RRR, no murmur, no edema Gastrointestinal (Abdomen) Percussion/Palpation: abdomen soft; abdomen nontender fundus firm at umbilicus and NT, incision c/d/i Musculoskeletal BLE symmetric, nonerythematous, nontender Results & Data ([facility]) Vital Signs (Past 12 Hours) Vital Signs Temp Pulse Resp BP Pulse Ox O2 Del Method 09/30/22 03:00 18 100 09/30/22 03:00 98.2 F 76 18 105/71 100 Room Air 09/30/22 02:00 18 100 09/30/22 01:00 18 100 09/30/22 00:01 18 100 09/29/22 23:35 98.4 F 77 18 120/69 09/29/22 23:00 18 100 09/29/22 22:05 18 09/29/22 21:05 18 100 09/29/22 20:15 18 98 09/29/22 19:15 20 98 09/29/22 19:15 98.1 F 78 18 122/82 99 Room Air
[2022-09-30] MEDS: SIMETHICONE 80 MG CHEW PO SCH ×4 (08:20→21:11)
[2022-09-30] MEDS: DOCUSATE SODIUM 100 MG CAP PO SCH ×2 (08:21→21:11)
[2022-09-30] MEDS: IBUPROFEN 600 MG TAB PO PRN ×3 (08:21→18:34)
[2022-09-30] MEDS: PRENATAL VITAMIN 1 TAB PO SCH (08:21)
[2022-09-30] MEDS: FERROUS SULFATE 325 MG TAB PO SCH (08:21)
[2022-09-30] MEDS ORDERED: bisacodyL 5 MG TABEC PO SCH (20:00)
[2022-10-01] MEDS: IBUPROFEN 600 MG TAB PO PRN ×2 (01:05→08:24)
--- NOTE | 2022-10-01 04:50 | Obstetrical Progress Note ---
Date of Service October 01, 2022 Assessment & Plan (1) care following delivery: (2) delivery delivered: Plan - Overall, feeling well and eating well today - feeding going well, questions about left breast latch, consultation pending - Urinating and stooling appropriately - Ambulating well throughout room - Pain controlled w/ Ibuprofen - Vitals stable and wnl - Hgb 8.7 on 09/30 - Routine PP care progressing well - Anticipate discharge today, patient requesting. - Recommending f/u outpatient in 6 weeks Admission and Anticipated Discharge Date Admission Date: September 28, 2022 Supervising Physician Co-Signing Physician Notes Resident Physician Supervision Note: I interviewed and examined the patient. Discussed with Dr. Maldonado and agree with findings and plan as documented in the note. Any exceptions or clarifications are listed here: POD2 s/p pLTCS, doing well. VSS, exam benign and wnl, incision c/d/i. Meeting all milestones, desires dc home today, stable to do so Documented By: Siomara Camacho MD Subjective Patient is a 31 y/o female who is POD #2 following delivery of a female at 40w4d via pLTCS. She reports feeling well overall this morning and is anticipating going home. - Ambulation - well throughout room - Voiding/Jett - independent voids, no dysuria or pressure - Gas/Stool - passing gas and moving bowels - Diet - regular, no nausea or emesis - Lochia - diminishing, moderate amount - Feeding Type - breast feeding, difficulties with left breast latch, requesting consultation - Pain Level - 4/10, controlled with Ibuprofen Review of Systems - Denies fever, chills, sweats - Denies shortness of breath, difficulty breathing, chest pain, palpitations, chest pressure. - Denies breast pain. - Denies dysuria. - Denies headache or changes in vision. Physical Exam Physical Exam: General: Alert, oriented. No acute distress. Cardiac: RRR, normal S1/S2, no murmurs/rubs/gallops. Respiratory: Non-labored, CTAB, no wheezes/rales/rhonchi. Symmetric chest rise. Abdomen: Soft, nontender, nondistended. Bowel sounds present. Surgical incision clean and dry w/o erythema or purulence. Uterus: Uterine fundus firm, palpable 2 cm below umbilicus. Lower Extremities: 1+ lower extremity edema or swelling. No deep calf pain. Ap's negative bilaterally. Results & Data ([facility]) Vital Signs (Past 12 Hours) Vital Signs Temp Pulse Resp BP Pulse Ox O2 Del Method 09/30/22 23:10 37.1 C 81 16 121/81 98 Room Air 09/30/22 19:15 36.7 C 89 16 126/87 98 Room Air Resident Activity Tracking Resident Involvement: Resident Care Provided Care Provided: OB Delivery
[2022-10-01 07:00] LABS: Hematocrit (blood only) 25.9 % (34.1-44.9); Hemoglobin 8.5 g/dl (12.0-16.0)
[2022-10-01] MEDS: FERROUS SULFATE 325 MG TAB PO SCH (08:24)
[2022-10-01] MEDS: SIMETHICONE 80 MG CHEW PO SCH (08:24)
[2022-10-01] MEDS: PRENATAL VITAMIN 1 TAB PO SCH (08:24)
[2022-10-01] MEDS: DOCUSATE SODIUM 100 MG CAP PO SCH (08:24)
[2022-10-01] MEDS ORDERED: bisacodyL 10 MG SUPP PR PRN (15:49)
== END 2022-10-01 13:20 | disposition home or self-care (01) | DRG 788 ==
LOC: 4S1 07:47 → 4E2 09-29 11:50

== ENCOUNTER 2024-12-11 05:34 | Inpatient (IN) ==
--- NOTE | 2024-11-30 15:48 | Anesthesiology Consultation ---
Date of Service November 30, 2024 Assessment & Plan (1) Encounter for pre-operative examination: Infectious disease screening: [facility] ER visit 10/25/24 for evaluation of flu-like symptoms (cough, chills, headache). No acute disease on chest x-ray. Positive for rhinovirus. Per subsequent PAT RN phone interview 11/30/24, symptoms resolved except residual cough. DOS 12/11/24. Symptom onset > 10 days prior to surgery and improving. Patient to call Ob/PAT if symptoms not at baseline prior to procedure. Chart Review Chart Review: customs entry writer initiated History Surgery Operation Date: 12/11/24 09:05 Proposed Procedures p Section (Delivery of Baby Through Abdominal Incision) - Yeny Simons MD, FACOG Height/Weight Height: 5 ft 3 in Weight: 108.862 kg Allergies Allergy/AdvReac Type Severity Reaction Status Date / Time clindamycin Allergy Mild esophagitis Verified 11/30/24 15:01 Medications Home Medications Medication Instructions Recorded Confirmed Last Taken prenat.vits,campos,[id number] 1 tab PO DAILY 10/26/21 11/24/24 Unknown acetone (urine) test (Ketone Urine #50 ea 06/25/24 11/24/24 Unknown Test strips) blood sugar diagnostic (OneTouch #150 ea 06/25/24 11/24/24 Unknown Verio test strips) lancets 33 gauge (OneTouch Delica #150 ea 06/25/24 11/24/24 Unknown Plus Lancet) doxylamine 10 mg-pyridoxine (vit 1 tab PO BID #180 tabs 07/07/24 11/24/24 Unknown B6) 10 mg tablet,delayed release (Diclegis) Past Medical History Medical History Gestational diabetes mellitus (GDM) "Well controlled with diet" History of chicken pox Past Family History Family History Grandmother (Maternal) Colorectal cancer Grandfather (Maternal) Myocardial infarction Uncle Myocardial infarction Denies family history of Ovarian cancer Prostate cancer Breast cancer Past Surgical History Surgical History History of postoperative nausea and vomiting severe after last Hx of section (09/29/22) Status post advanced surface ablation photorefractive keratectomy (PRK) [place] teeth extracted (2012) Social History Smoking Status: Never smoker Do You Dip or Chew Tobacco: No Hx Alcohol Use: No Hx Substance Use: No substance use type: does not use Lab Results Anesthesia Preop Results Results Anesthesia Widget: WBC 10.54 K/ul (4.8-10.8) 10/25/24 Hgb 11.9 g/dl (12.0-16.0) L 10/25/24 Hct 35.4 % (37.0-47.0) L 10/25/24 Plt 233 K/uL (130-400) 10/25/24 Na 137 mmol/L (136-145) 10/25/24 K 3.8 mmol/L (3.5-5.1) 10/25/24 Cl 106 mmol/L (98-107) 10/25/24 CO2 22 mmol/L (21-32) 10/25/24 BUN 4 mg/dl (6-23) L 10/25/24 Creat 0.44 mg/dl (0.6-1.2) L 10/25/24 Glucose Level 97 mg/dl (70-99(Fasting)) 10/25/24 Urine Color Yellow 10/25/24 Urine Appearance Cloudy (Clear) A 10/25/24 Urine pH 6.0 (4.5-7.5) 10/25/24 Urine Specific [place] 1.023 (1.000-1.030) 10/25/24 Urine Protein 1+ (Negative) H 10/25/24 Urine Glucose (UA) Negative (Negative) 10/25/24 Urine Ketones 3+ (Negative) H 10/25/24 Urine Blood Negative (Negative) 10/25/24 Urine Nitrite Negative (Negative) 10/25/24 Urine Bilirubin Negative (Negative) 10/25/24 Urine Urobilinogen Negative (Negative) 10/25/24 Urine Leukocyte Esterase 1+ (Negative) H 10/25/24 Urine WBC (Auto) 11-20 /hpf (0-5) H 10/25/24 Urine RBC (Auto) 0-2 /hpf (0-2) 10/25/24 Urine Hyaline Casts (Auto) 3-5 /lpf (0-2) H 10/25/24 Urine Epithelial Cells (Auto) 6-10 /hpf (0-2) H 10/25/24 Urine Bacteria (Auto) 3+ (None Seen) H 10/25/24 Coronavirus OC43 (PCR) Not Detected (NotDetected) 10/25/24 Coronavirus HKU1 (PCR) Not Detected (NotDetected) 10/25/24 Coronavirus 229E (PCR) Not Detected (NotDetected) 10/25/24 COVID-19 PCR Not Detected (NotDetected) 10/25/24 Coronavirus NL63 (PCR) Not Detected (NotDetected) 10/25/24 Testing Laboratory Results Urine culture (10/25/24): probable skin mely Electrocardiogram Date: 10/25/24 ST at 105bpm. Cannot r/o anterior infarct, age undetermined Chest X-Ray Date: 10/25/24 FINDINGS: Lung volumes are normal. Lungs are clear. There is no pneumothorax or pleural effusion. Cardiac size is normal. Mediastinal contours are normal. There is no evidence for pulmonary edema. IMPRESSION: No acute cardiopulmonary findings.
--- NOTE | 2024-12-10 13:05 | History & Physical Report ---
Date of Service December 10, 2024 Assessment & Plan (1) Previous delivery affecting , antepartum: Plan: IUP at 39+ weeks presents for repeat LTCS the procedure and it's risks were reviewed with the patient and her and all questions were answered to her satisfaction History of Present Illness Primary Care Provider: Yaima Swan MD Patient is a 34 yo female EDC 12/14/24 who presents for repeat LTCS. prior LTCS was done for arrest of descent. this complicated by diet controlled GDM. testing has been reassuring. Allergies Allergy/AdvReac Type Severity Reaction Status Date / Time clindamycin Allergy Mild esophagitis Verified 12/10/24 09:12 Home Medications Medication Instructions Recorded Confirmed Type prenat.vits,campos,[id number] 1 tab PO DAILY 10/26/21 12/10/24 History acetone (urine) test (Ketone Urine #50 ea 06/25/24 12/10/24 Rx Test strips) blood sugar diagnostic (OneTouch #150 ea 06/25/24 12/10/24 Rx Verio test strips) lancets 33 gauge (OneTouch Delica #150 ea 06/25/24 12/10/24 Rx Plus Lancet) doxylamine 10 mg-pyridoxine (vit 1 tab PO BID #180 tabs 07/07/24 12/10/24 Rx B6) 10 mg tablet,delayed release (Diclegis) Patient History Medical History Gestational diabetes mellitus (GDM) "Well controlled with diet" History of chicken pox Surgical History History of postoperative nausea and vomiting severe after last Hx of section (09/29/22) Status post advanced surface ablation photorefractive keratectomy (PRK) [place] teeth extracted (2012) Family History Grandmother (Maternal) Colorectal cancer Grandfather (Maternal) Myocardial infarction Uncle Myocardial infarction Denies family history of Ovarian cancer Prostate cancer Breast cancer Social History Smoking Status: Never smoker Second Hand Exposure: No; Do You Dip or Chew Tobacco: No; Tobacco Cessation Education Requested by Patient: No Hx Alcohol Use: No Hx Substance Use: No Preferred Language: Lao Communication Ability: Effective Visual Impairment: No Limitations Hearing Ability: Normal Hot Dip Galvanizer Required: No Beliefs That Will Affect Care: None marital status: marital status details: Celso Guzman (29) [phone] Current Living Situation: Spouse and Family Current Living Situation Comment: Celso- , daughter, 2dogs, 2cats, 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 [employer] Other Information That Helps Us Care for You: No Feels Safe at Home: Yes Safety Concerns: Feels Safe At This Time Assistive Devices: None Review of Systems All systems reviewed & are unremarkable except as noted in HPI & below Physical Exam Constitutional: WD/WN, vitals as above Respiratory: normal respiratory effort, lungs clear to auscultation Cardiovascular: RRR, no murmur, no edema Gastrointestinal (Abdomen): well healed low transverse scar Psychiatric: A+Ox3, euthymic affect Genitourinary: OB Exam Abdomen: + fundal height (term) and + vertex OB Exam Monitor Tracing: + external FHT monitor used, + external uterine monitor used, + category I and + normal FHT variability Coding Level of Care Code 60606 INT INP/OBS CARE 40MIN Diagnoses Previous delivery affecting , antepartum O34.219
[2024-12-11 06:09] LABS: Basophils # (auto) 0.01 K/uL (0.00-0.20); Basophils % (auto) 0.1 %; Eosinophils # (auto) 0.11 K/uL (0.00-0.50); Eosinophils % (auto) 1.3 %; Hematocrit (blood only) 29.9 % (37.0-47.0); Immature Granulocytes # (auto) 0.03 K/uL (0.01-0.20); Immature Granulocytes % (auto) 0.4 %; Lymphocytes # (auto) 2.59 K/uL (1.20-3.40); Lymphocytes % (auto) 31.1 %; Mean Corpuscular Hgb Conc 33.4 g/dL (32.0-36.0); Mean Corpuscular Volume 83.8 fL (80.0-100.0); Mean Platelet Volume 10.4 fL (9.4-12.4); Monocytes # (auto) 0.61 K/uL (0.11-0.59); Monocytes % (auto) 7.3 %; Neutrophils # (auto) 4.99 K/uL (1.40-6.50); Neutrophils % (auto) 59.8 %; Platelet Count 226 K/uL (130-400); RDW Coefficient of Variation 13.2 % (11.5-14.5); RDW Standard Deviation 40.2 fL (36.4-46.3); Red Blood Count 3.57 M/uL (4.20-5.40); White Blood Count 8.34 K/ul (4.8-10.8)
[2024-12-11] MEDS ORDERED: SODIUM CHLORIDE 0.9% 50 ML IV PRN ×2 (06:18→10:15)
[2024-12-11] MEDS ORDERED: SODIUM CHLORIDE 0.9% 100 ML IV PRN ×2 (06:18→10:15)
[2024-12-11] MEDS: ACETAMINOPHEN 500 MG TAB PO SCH (06:28)
[2024-12-11] MEDS ORDERED: ePHEDrine sulfate 50 MG/5 ML SYR ONE (06:50)
[2024-12-11] MEDS ORDERED: DEXAMETHASONE SOD INJ 4 MG/ML VIAL ONE (06:51)
[2024-12-11] MEDS ORDERED: PHENYLEPHRINE HCL 25 MG/250 ML NSS IV ONE (06:51)
[2024-12-11] MEDS ORDERED: ONDANSETRON INJ 2 MG/ML 2 ML VIAL ONE (06:51)
[2024-12-11] MEDS ORDERED: diphenhydrAMINE 50 MG/ML VIAL ONE (06:51)
[2024-12-11] MEDS ORDERED: MoRPHine SULFATE PF 1 MG/ML 10 ML AMP/VIAL ONE (06:55)
[2024-12-11] MEDS ORDERED: fentaNYL citrate PF 100 MCG/2 ML VIAL ONE (06:55)
[2024-12-11] MEDS: LACTATED RINGER'S 1,000 ML IV SCH ×3 (07:00→18:08)
--- NOTE | 2024-12-11 07:27 | History & Physical Bridge Note ---
Date of Service December 11, 2024 History & Physical Bridge Note I have examined the patient, reviewed the History & Physical and in the interval since the performance of the History & Physical I have noted the following changes of clinical significance: no changes noted
[2024-12-11] MEDS: ceFAZolin 3,000 MG/72.5 ML BAG IV SCH (07:31)
[2024-12-11] MEDS: OXYTOCIN 20 UNITS/LR 1,002 ML IV SCH (08:30)
[2024-12-11] MEDS ORDERED: OXYTOCIN 10 UNITS/ML VIAL ONE (08:33)
[2024-12-11] MEDS ORDERED: NALBUPHINE HCL INJ 10 MG/ML AMP IV PRN (08:51)
[2024-12-11] MEDS ORDERED: diphenhydrAMINE 50 MG/ML VIAL IV PRN (08:51)
[2024-12-11] MEDS ORDERED: oxyCODONE HCL IR 5 MG TAB (IMMEDIATE RELEASE) PO PRN (08:51)
[2024-12-11] MEDS ORDERED: HYDROmorphone INJ 0.5 MG/0.5 ML SYR IV PRN (08:51)
[2024-12-11] MEDS ORDERED: ONDANSETRON INJ 2 MG/ML 2 ML VIAL IV PRN (08:51)
[2024-12-11] MEDS ORDERED: ePHEDrine sulfate 50 MG/ML AMP IV PRN (08:51)
[2024-12-11] MEDS ORDERED: PROMETHAZINE 6.25 MG/50.25 ML BAG IV PRN (08:51)
[2024-12-11] MEDS ORDERED: NALOXONE HCL 1 MG in SODIUM CHLORIDE 0.9% 1,000 ML IV PRN (08:51)
[2024-12-11] MEDS ORDERED: NALOXONE HCL 0.4 MG/1 ML VIAL/CARP IV PRN (08:51)
[2024-12-11] MEDS ORDERED: NALOXONE HCL 0.08 MG in SYRINGE 1.8 ML IV PRN (08:51)
--- NOTE | 2024-12-11 08:53 | Anesthesiology Progress Note ---
Date of Service December 11, 2024 Anesthesia Post Procedure Vital Signs Vital Signs: Temp Pulse Resp BP Pulse Ox 12/11/24 08:46 73 99 12/11/24 08:42 82 148/72 H 12/11/24 08:41 91 H 100 12/11/24 06:59 94 H 137/92 12/11/24 06:00 79 134/75 12/11/24 05:47 36.5 C 18 12/11/24 05:42 88 136/90 Transfer of Care Handoff Completed per policy Notes Mental Status: alert / awake / arousable and participated in evaluation Patient Amnestic to Procedure: No Nausea / Vomiting: adequately controlled Pain: adequately controlled Airway Patency, RR, SpO2: stable & adequate BP & HR: stable & adequate Hydration State: stable & adequate Neuraxial Anesthesia: was administered and sensory block is resolving Anesthetic Complications: no major complications apparent and Pt Satisfied with anesthetic care
[2024-12-11] MEDS ORDERED: NO NARCOTICS OR SEDATIVES SCH (09:00)
[2024-12-11] MEDS ORDERED: DC INTRASPINAL MORPHINE SCH (09:00)
[2024-12-11] MEDS ORDERED: CALCIUM CARBONATE 500 MG CHEWABLE TAB PO PRN (09:11)
[2024-12-11] MEDS ORDERED: HYDROCORTISONE ACETATE 25 MG SUPP PR PRN (09:11)
[2024-12-11] MEDS ORDERED: MAGNESIUM HYDROXIDE SUSP 30 ML UDC PO PRN (09:11)
[2024-12-11] MEDS ORDERED: SENNA 8.6 MG TAB PO PRN (09:11)
[2024-12-11] MEDS ORDERED: BENZOCAINE 20% SPRY 85 APPLN/85 GM CAN EXT PRN (09:11)
--- NOTE | 2024-12-11 09:13 | Post Operative Brief Note ---
Immediate Post Op Note Date of Surgery December 11, 2024 Pre & Post Diagnosis Operation Date: 12/11/24 07:30 Pre-Op Diagnosis: 1.Prior caesarean section 2.Desires repeat caesarean section Post-Op Diagnosis: same as preoperative I identified the patient and participated in the time-out.: Yes Procedure Operation Date: 12/11/24 07:30 Actual Procedures p Section in LD on 12/11/24 @(Bilateral) - Yeny Simons MD, FACOG Surgeon Yeny Simons MD, FACOG Csm Consultant Tracey Clinton MD, Yung Motta MS2 Quantitative Blood Loss (QBL) 768 Findings Consistent with Post-Op Diagnosis gravid uterus consistent with term in size. bilateral ovaries and tubes are grossly normal 2 tiny sessile fibroids on the fundus one anterior and one posterior. Specimens Specimen Description: 1. [facility] on 12/11/24 @ 0801 2. Placenta- hold 3. Cord blood Drains Jett Catheter Anesthesia Type Spinal Complications none Disposition Accompanied Patient To Recovery: Yes Disposition: L&D
[2024-12-11] MEDS: DIPHTHER/TETAN/PERTUS Vaccine (Tdap, Adol/Adult) 0.5mL IM ONE (09:22)
[2024-12-11] MEDS: CITRIC ACID/SODIUM CITRATE 15 ML UDC PO SCH (09:22)
[2024-12-11] MEDS: NON-FORMULARY MEDICATION (Prenat.Vits,Cal,Min-Iron-Folic tablet) PO SCH (09:28)
[2024-12-11] MEDS: KETOROLAC 30 MG/ML VIAL IV SCH (09:32)
[2024-12-11] MEDS: miSOPROStoL 200 MCG TAB ONE (09:40)
[2024-12-11] MEDS: METHYLERGONOVINE MALEATE 0.2 MG/ML AMP ONE (09:40)
[2024-12-11] MEDS: TRANEXAMIC ACID / 0.7% NACL 1,000 MG/100 ML BAG IV STA (09:47)
[2024-12-11] MEDS: OXYTOCIN 30 UNITS/NSS 30 UNITS/500 ML BAG IV SCH (09:59)
[2024-12-11 10:37] LABS: Basophils # (auto) 0.02 K/uL (0.00-0.20); Basophils % (auto) 0.2 %; Eosinophils # (auto) 0.03 K/uL (0.00-0.50); Eosinophils % (auto) 0.3 %; Hematocrit (blood only) 27.5 % (37.0-47.0); Hemoglobin 9.1 g/dl (12.0-16.0); Immature Granulocytes # (auto) 0.07 K/uL (0.01-0.20); Immature Granulocytes % (auto) 0.7 %; Lymphocytes # (auto) 1.24 K/uL (1.20-3.40); Lymphocytes % (auto) 12.4 %; Mean Corpuscular Hemoglobin 28.4 pg (25.0-34.0); Mean Corpuscular Hgb Conc 33.1 g/dL (32.0-36.0); Mean Corpuscular Volume 85.9 fL (80.0-100.0); Mean Platelet Volume 10.5 fL (9.4-12.4); Monocytes # (auto) 0.27 K/uL (0.11-0.59); Monocytes % (auto) 2.7 %; Neutrophils # (auto) 8.39 K/uL (1.40-6.50); Neutrophils % (auto) 83.7 %; Platelet Count 222 K/uL (130-400); RDW Coefficient of Variation 13.2 % (11.5-14.5); RDW Standard Deviation 40.9 fL (36.4-46.3); White Blood Count 10.02 K/ul (4.8-10.8)
[2024-12-11 10:54] LABS: Calcium 7.8 mg/dl (8.6-10.3); Creatinine Clr Calc Pharmacy 157.9 ml/min; Potassium 3.5 mmol/L (3.5-5.1)
[2024-12-11 11:04] LABS: Fibrinogen 370 mg/dl (184-400); Partial Thromboplastin Time 26 Seconds (21-31); Prothrombin Time 10.6 Seconds (9.0-12.0)
[2024-12-11 11:09] LABS: D Dimer 2350 ug/L FEU (0-500)
--- NOTE | 2024-12-11 11:28 | Operative Report ---
Post Operative Report Pre & Post Diagnosis Operation Date: 12/11/24 07:30 Pre-Op Diagnosis: 1.Prior caesarean section 2.Desires repeat caesarean section Post-Op Diagnosis: same as preoperative I identified the patient and participated in the time-out.: Yes Procedure Operation Date: 12/11/24 07:30 Actual Procedures p Section in on 12/11/24 @(Bilateral) - Yeny Simons MD, FACOG Surgeon Yeny Simons MD, FACOG Gas Station Clerk Tracey Clinton MD, Yung Azevedo MS2 Quantitative Blood Loss (QBL) 768 Findings Consistent with Post-Op Diagnosis Specimens Placenta to hold Drains Jett catheter to straight drainage clear urine at the end of the case. Anesthesia Type Spinal Complications none Disposition Accompanied Patient To Recovery: Yes Disposition: L&D Indications 2 para 1-0-0-1 34-year-old female EDC of 12/14/2024 who presents for repeat section. Prior section was done because arrest of descent. complicated by diet-controlled GDM. Last growth scan at 36 weeks showed an LGA fetus. Patient is requesting repeat section. Description of Procedure As the patient received adequate subarachnoid block she was prepped and draped in usual sterile fashion. A low transverse skin incision was made through her prior scar and carried to the fascia with the same scalpel. Fascial incision was then extended with Singh scissors. The edges were then grasped with Shruthi clamps and the underlying rectus muscle was bluntly and sharply dissected off of the overlying fascia. The peritoneum was entered bluntly. The bladder blade was placed into the abdomen and the bladder taken down off of the anterior surface of the uterus and placed behind the bladder blade. The lower uterine segment was entered with a scalpel clear fluid was obtained. The uterine incision was extended in a cephalad and caudad direction by stretching the incision. The was delivered with moderate fundal pressure and vacuum assistance. The infant's head delivered through 1 pull of the Kiwi vacuum. The rest of the then delivered. The cord was clamped and cut and cord blood was obtained. The infant was vigorous crying and moving all 4 limbs. The placenta was then expressed intact with a three-vessel cord. bleeding was controlled with fundal massage and dilute Pitocin. She also received 10 units intramuscularly into the uterine fundus. At this point, the uterine fundus was now firm. The uterine cavity is then explored and there is no evidence of any retained tissue or clot. The uterus was closed in 2 layers in a running locking imbricating fashion with 0 Monocryl. Hemostasis was noted to be excellent in the uterine incision. The posterior cul-de-sac was cleared of a small amount of bloody fluid. Uterine incision was examined once more and continue to have excellent hemostasis. Uterus was placed back inside the abdominal cavity and the gutters were explored and found to be free of any clot or fluid. There was a large clot in the anterior cul-de-sac. The rectus muscle were then brought together and midline with individual stitches of 0 Monocryl. The fascia was closed in a running fashion with 0 Vicryl. After irrigating the subcutaneous layer, the skin edges were reapproximated with a subcuticular stitch of 4-0 Vicryl. Patient tolerated the procedure well was stable upon arrival in recovery room. I attest to the content of the Intraoperative Record and any orders documented therein. Any exceptions are noted below. OB Procedure Charges 07735
--- NOTE | 2024-12-11 11:34 | Communication Note ---
Date of Service: December 11, 2024 I was called to the patient's room approximately 1 hour after her return to labor and delivery after section. She was feeling nauseous and with fundal massage, she passed a large clot and continued to have a steady trickle of bleeding. Patient received 1000 mg of TXA, Pitocin run wide open, IM Methergine, and 1000 mcg of Cytotec rectally. The uterine cavity was explored and a large amount of clot was removed both from the lower uterine segment and the fundus. The fundus appeared to be more firm at this time however a SREEKANTH device was placed into the uterine cavity after patient gave verbal consent.. 80 cc of water was placed in the balloon which was snug against the cervix. There is approximately 50 cc of blood in the tubing once suction was begun at 80 mmHg. No further bleeding noted vaginally. QBL is 1281 mL. QBL at the time of her section was 768 mL. Hemoglobin at 1030 was 9.1 with a platelet count of 222,000. Because of the significant blood loss , will transfuse 2 units of packed RBCs now. Will recheck a hemoglobin 2 hours after the second unit of PRBCs has been transfused.
--- NOTE | 2024-12-11 11:36 | Communication Note ---
Date of Service: December 11, 2024 Reassessment 1 hour after placement of the SREEKANTH device shows minimal vaginal discharge and no appreciable change in the amount of blood in the tubing. Fundus is firm at 2 above the umbilicus.
[2024-12-11] MEDS: TRANEXAMIC ACID / 0.7% NACL 1000MG/100ML BAG IV ONE (12:04)
[2024-12-11] MEDS: METHYLERGONOVINE MALEATE 0.2 MG/ML AMP IM STA (12:05)
[2024-12-11] MEDS: miSOPROStoL 200 MCG TAB PR ONE (12:05)
[2024-12-11] MEDS: cefOXitin 2,000 MG in DEXTROSE 5 % MINI-B 50 ML IV STA (14:21)
[2024-12-11] MEDS: SIMETHICONE 80 MG CHEW PO SCH (15:16)
[2024-12-11] MEDS: ACETAMINOPHEN 325 MG TAB PO SCH (15:17)
--- NOTE | 2024-12-11 16:28 | Communication Note ---
Date of Service: December 11, 2024 received 2 u PRBC's - H&H pending SREEKANTH taken off suction at 1220 and balloon emptied. SREEKANTH removed at 1415 - bleeding now scant will transfer to floor now
[2024-12-11] MEDS ORDERED: LACTATED RINGER'S 500 ML IV ONE (17:34)
[2024-12-11 18:01] LABS: Hematocrit (blood only) 28.2 % (37.0-47.0); Hemoglobin 9.4 g/dl (12.0-16.0)
[2024-12-11] MEDS ORDERED: LACTATED RINGER'S 500 ML IV SCH (18:15)
[2024-12-11] MEDS: DOCUSATE SODIUM 100 MG CAP PO SCH (21:55)
[2024-12-12] MEDS ORDERED: diphenhydrAMINE Capsule 25 MG CAP PO PRN (02:52)
[2024-12-12] MEDS ORDERED: PROMETHAZINE 12.5 MG/50.5 ML BAG IV PRN (02:52)
[2024-12-12] MEDS ORDERED: diphenhydrAMINE 50 MG/ML VIAL IV PRN (02:52)
[2024-12-12] MEDS ORDERED: ONDANSETRON INJ 2 MG/ML 2 ML VIAL IV PRN (02:52)
[2024-12-12] MEDS ORDERED: HYDROmorphone INJ 0.5 MG/0.5 ML SYR IV PRN (02:52)
--- NOTE | 2024-12-12 06:52 | Obstetrical Progress Note ---
Date of Service <Huber Storm MD - Last Filed: 12/12/24 08:02> December 12, 2024 Assessment & Plan <Huber Storm MD - Last Filed: 12/12/24 08:02> (1) Previous delivery affecting , antepartum: (2) care and examination: (3) hemorrhage: Plan POD#1 s/p LTCS at 39 wga c/b ~2050 cc blood loss s/p TXA, Methergine, Cytotec, 2 units pRBCs, & SREEKANTH device placed in uterine cavity Now stable. Vitals wnl. Hgb 8.3. Would rec continuing po iron supplement for next few weeks Rh+, gbs neg, ri, continue routine care, progress diet as tolerated Goals for today: continue working on ambulation; shower <Yeny Simons MD, FACOG - Last Filed: 12/12/24 08:35> (1) Previous delivery affecting , antepartum: (2) care and examination: (3) hemorrhage: Subjective <Huber Storm MD - Last Filed: 12/12/24 08:02> Patient is a 34yo who is POD#1 following delivery at 39 4/7 wga. Mild abd pain/cramping, well managed on analgesics Voiding w/o issue Tolerating meals, no n/v Ambulating normally, no dizziness or lightheadedness +passing gas, BM x 1 Lochia minimal, diminishing Planning to breastfeed. Constitutional: no fever, no chills or no sweats Respiratory: no dyspnea Cardiovascular: no chest pain, no palpitations or no calf pain Breast: no breast pain Gastrointestinal: no nausea or no vomiting Genitourinary (female): no dysuria Neurologic: no headache(s) no changes in vision, no headaches Physical Exam <Huber Storm MD - Last Filed: 12/12/24 08:02> General: Alert, oriented. No acute distress. Cardiac: Regular rate and rhythm, no murmurs, rubs, or gallops. Respiratory: Clear to auscultation bilaterally. No increased work of breathing. Symmetrical chest rise. No respiratory distress. Abdomen: Soft, nontender, nondistended. Bowel sounds present. Uterus: Uterine fundus firm, nontender. Surgical scar clean, healing, one spot of serosanguineous drainage Lower extremities: No lower extremity edema or swelling. No deep calf pain. Results & Data <Huber Storm MD - Last Filed: 12/12/24 08:02> Vital Signs (Past 12 Hours) Vital Signs Temp Pulse Pulse Resp BP Pulse Ox O2 Del Method 12/12/24 03:10 20 97 12/12/24 03:00 36.5 C 90 18 113/76 99 Room Air 12/12/24 02:00 98 12/12/24 01:00 18 98 12/12/24 00:00 100 12/11/24 23:04 36.6 C 71 16 109/71 97 Room Air 12/11/24 23:00 99 12/11/24 22:08 18 98 12/11/24 21:11 18 97 12/11/24 20:30 18 100 12/11/24 19:30 18 98 12/11/24 19:12 36.7 C 77 18 118/80 99 Room Air Laboratory Results 12/12/24 06:44 12/11/24 10:09 Supervising Physician <Yeny Simons MD, FACOG - Last Filed: 12/12/24 08:35> Co-Signing Physician Notes Resident Physician Supervision Note: I interviewed and examined the patient. Discussed with Dr. Storm and agree with findings and plan as documented in the note. Any exceptions or clarifications are listed here: [None] Documented By: Yeny Simons MD, FACOG Resident Activity Tracking <Huber Storm MD - Last Filed: 12/12/24 08:02> Resident Involvement: Resident Care Provided Care Provided: Adult Hospital Medicine
[2024-12-12 07:04] LABS: Basophils # (auto) 0.02 K/uL (0.00-0.20); Basophils % (auto) 0.2 %; Eosinophils # (auto) 0.08 K/uL (0.00-0.50); Eosinophils % (auto) 0.8 %; Hematocrit (blood only) 25.4 % (37.0-47.0); Hemoglobin 8.3 g/dl (12.0-16.0); Immature Granulocytes # (auto) 0.05 K/uL (0.01-0.20); Immature Granulocytes % (auto) 0.5 %; Lymphocytes # (auto) 2.98 K/uL (1.20-3.40); Lymphocytes % (auto) 29.7 %; Mean Corpuscular Hemoglobin 27.3 pg (25.0-34.0); Mean Corpuscular Hgb Conc 32.7 g/dL (32.0-36.0); Mean Corpuscular Volume 83.6 fL (80.0-100.0); Mean Platelet Volume 10.1 fL (9.4-12.4); Monocytes # (auto) 0.69 K/uL (0.11-0.59); Monocytes % (auto) 6.9 %; Neutrophils # (auto) 6.22 K/uL (1.40-6.50); Neutrophils % (auto) 61.9 %; Platelet Count 162 K/uL (130-400); RDW Coefficient of Variation 14.4 % (11.5-14.5); RDW Standard Deviation 43.5 fL (36.4-46.3); Red Blood Count 3.04 M/uL (4.20-5.40); White Blood Count 10.04 K/ul (4.8-10.8)
[2024-12-12] MEDS: MoRPHine SULFATE PF 1 MG/ML 10 ML AMP/VIAL INT SPINAL ONE (07:22)
[2024-12-12] MEDS: PRENATAL VITAMIN 1 TAB PO SCH (08:33)
[2024-12-12] MEDS: FERROUS SULFATE 325 MG TAB PO SCH (08:33)
[2024-12-12] MEDS ORDERED: KETOROLAC 30 MG/ML VIAL IV PRN (09:30)
[2024-12-12] MEDS: IBUPROFEN 600 MG TAB PO SCH (09:53)
[2024-12-12] MEDS: SODIUM CHLORIDE 0.9% 1,000 ML IV SCH (10:09)
[2024-12-12] MEDS: bisacodyL 5 MG TABEC PO SCH (19:52)
[2024-12-12] MEDS: oxyCODONE HCL IR 5 MG TAB (IMMEDIATE RELEASE) PO PRN (19:52)
[2024-12-13 06:18] LABS: Hematocrit (blood only) 24.8 % (37.0-47.0); Hemoglobin 8.1 g/dl (12.0-16.0)
[2024-12-13] MEDS ORDERED: bisacodyL 10 MG SUPP PR PRN (08:44)
[2024-12-13] MEDS: IBUPROFEN 600 MG TAB PO PRN (09:06)
--- NOTE | 2024-12-13 09:43 | Obstetrical Progress Note ---
Date of Service December 13, 2024 Assessment & Plan (1) care and examination: Day 2 status post . Patient doing well and requesting discharge. Vitals are stable and patient denying any anemia symptoms. Subjective Ambulation: ambulating normally Voiding: no voiding problems Passing Gas:: Yes Diet Tolerance:: regular diet Lochia:: Moderate Denying calf tenderness/pain Physical Exam Constitutional WD/WN, vitals as above Respiratory normal respiratory effort; no respiratory distress and no labored breathing Cardiovascular Extremities: no calf tenderness Gastrointestinal (Abdomen) Inspection/Auscultation: abdomen normal to inspection; abdomen not distended Percussion/Palpation: abdomen soft; abdomen nontender, no guarding and abdomen not rigid Incision clean, dry and intact Genitourinary OB Exam Abdomen: + fundal height Fundus: + firm and + relation to umbilicus (Below); not tender or not boggy Results & Data Vital Signs (Past 12 Hours) Vital Signs Temp Pulse Resp BP Pulse Ox O2 Del Method 12/13/24 04:31 36.5 C 85 14 137/72 99 Room Air
[2024-12-13 10:17] VITALS: BP 128/84; RESP 16; TEMP 97.5; O2SAT 97
[2024-12-13 10:54] VITALS: PULSE 90
[2024-12-13] MEDS ORDERED: ACETAMINOPHEN 325 MG TAB PO PRN (15:30)
--- NOTE | 2024-12-14 13:28 | Discharge Summary ---
Date of Service December 14, 2024 Admission HPI Per Admitting Provider Patient is a 34 yo female EDC 12/14/24 who presents for repeat LTCS. prior LTCS was done for arrest of descent. this complicated by diet controlled GDM. testing has been reassuring. Admission Exam (Per Admitting) Constitutional WD/WN, vitals as above Respiratory normal respiratory effort, lungs clear to auscultation Cardiovascular RRR, no murmur, no edema Psychiatric A+Ox3, euthymic affect Genitourinary OB Exam Abdomen: + fundal height (term) and + vertex OB Exam Monitor Tracing: + external FHT monitor used, + external uterine monitor used, + category I and + normal FHT variability Discharge Data Consultations 12/11/24 05:35 Consult Anesthesiology Stat Procedures Performed Operation Date: 12/11/24 07:30 Actual Procedures p Section in LD on 12/11/24 @(Bilateral) - Yeny Simons MD, FACOG Discharge Plan Discharge Items Patient Disposition: Home - Self-Care Reason For Visit: History of Section Discharge Diagnosis: CS Activity: Per Instructions section Non-emergency contact: Fire Alarm Repairer Call non-emergency contact if: your temperature is above 101 Follow-up/Referrals: Yaima Swan MD [Primary Care Provider] - Diet: Regular Addtl Attending Provider Instructions: ACTIVITY RECOMMENDATIONS: * Gradual return to full activity over the next 2-3 weeks. * No lifting - nothing heavier than baby over the next 2-3 weeks. * Do not engage in vigorous exercise, sexual activity or sports until cleared by your physician. * Do not drive or operate any motorized equipment until cleared by your physician. * You may shower/bathe daily. MEDICATIONS: For discomfort or pain, you may use Acetaminophen (Tylenol), Ibuprofen (Advil), or Naproxen (Aleve) following the package directions. For constipation you may use Colace following the package directions. BREAST CARE: If you are not breast feeding: * Wear a supportive bra 24 hours a day for one to two weeks. * Avoid stimulating your breasts and nipples as much as possible during the first few weeks after delivery. * When taking a shower, have the warm water hit your back, not breasts. * When your breasts feel full, apply ice packs. Usually three to four times a day helps ease the discomfort. * Take a mild pain medication (Tylenol / Motrin) when you are uncomfortable. If breast feeding: * Use breast milk to lubricate nipples. Lansinoh cream may be used for sore nipples. You do not need to remove cream prior to breast feeding. If using a different brand of cream, check the label for directions regarding removal of cream prior to nursing. * Wear a supportive bra. * If having problems with breasts or breast feeding, call a information resource consultant or your health care provider. EPISIOTOMY CARE: After delivery, if you have an episiotomy (stitches), the following steps will ease discomfort and aid healing. * For the first 24 hours after delivery, place ice packs next to your episiotomy to help reduce swelling. * After the first 24 hour-period, sitz baths, either portable or in the tub, are suggested. A shower with a shower arm sprayed over the episiotomy may be comforting. * Kay care should be done after each voiding and bowel movement. Squirt warm water from a plastic bottle over the perineum (region of the body between the anus and urinary opening) and pat dry. * Use Dermoplast to ease discomfort. Shake container. [place] directly over the episiotomy. Place a Tucks on a clean sanitary pad next to your episiotomy. SPECIAL CARE INSTRUCTIONS: When you are discharged from the hospital, it is important for you to follow the instructions listed below: * During the first week at home, you should be able to care for yourself and your baby. In addition, the usual light household activities are encouraged. * Limit your activities to the way you feel. Do not try to clean the house or move furniture. Be sensible. * If you actively engage in sports and have done so up until the time of your delivery, you may resume these activities as soon as you feel able. This may take up to one month or even longer. Use good judgment. * Continue to take your vitamins for at least six weeks after the of your baby. * Your diet need not be limited unless you were on a special diet before your delivery. Breast-feeding mothers need around 2500 calories per day and at least 64-80 ounces of fluid per day (8 to 10 glasses). * You should eat foods from the four major food groups. Crash diets or fad diets are to be avoided. Eating lean meats, fresh fruits and vegetables, low-fat dairy products, high fiber foods and a regular exercise program, will help you get back to your pre- weight without putting your health at risk. * Constipation is sometimes a problem after delivery. Take a mild laxative as needed. If breast feeding, Milk of Magnesia is acceptable to use. You may use a clemente ppository or Fleets enema if no episiotomy. * A daily shower or tub bath is suggested. Be sure to thoroughly and gently dry the perineum. * A bloody vaginal discharge will usually continue until around four weeks post . A small amount of bleeding may continue for as long as six weeks. Vaginal discharge changes from the bright red bleeding after delivery to pink then brownish and finally yellowish-pink before becoming white and disappearing. * Bleeding may increase with activity. Your first period may come in 4-8 weeks. If you are breast feeding, your period may be delayed even longer. * Dix (sex) can begin whenever both you and your partner feel comfortable and do not have any form of genital infection. It is recommended that you wait at least six weeks for internal and external healing to occur. If you have questions, please talk to your health care practitioner. A condom should be used to prevent infection and . * Foreplay, gentle intercourse and lubrication is very important the first several times to prevent pain. A water-based lubricant such as K-Y jelly or Astroglide may be used. * If you have RH negative blood and your baby is RH positive, you will receive RHOGAM by injection prior to discharge. The nurse will give you a card to keep with you that has the date and place that you received RHOGAM after delivery. * During your care, you had a Rubella screen done to check for the presence of rubella antibodies in your blood. If your test was negative, you will receive a Rubella vaccine prior to discharge. This vaccine may cause a fever, soreness at the injection site and flu-like symptoms. If these symptoms persist, notify your health care practitioner. is not advised for one month after a Rubella vaccine. * Verbalizes understanding of car seat law as reviewed with patient nursing. * Car Seat hand-out given and reviewed with patient by nursing. * Shaken baby information reviewed with patient by nursing. Call you doctor if: * Heavy bleeding (saturating several pads an hour) or passing clots the size of your fist. * A fever >101 degrees F (38.3 degrees C) on two occasions four hours apart and/or chills. * Unusual pain in the pelvic or vaginal areas. * "Baby Blues" lasting longer than two weeks. If you have any questions or concerns, call your health care practitioner at . FOLLOW UP VISIT: * Please call the office at to schedule a 6 week examination. It is important you keep this appointment. It is important for you to make arrangements for either yearly or twice yearly check-ups thereafter. Pending Studies at Discharge: No Stand-Alone Forms: My [facility], Smoking Cessation Medications and DC Order Prescriptions: New oxycodone 5 mg Tablet 5 mg PO Q4H PRN (Reason: pain) Qty: 14 0RF Continued doxylamine-pyridoxine (vit B6) [Diclegis] 10-10 mg tablet,delayed release (DR/EC) 1 tab PO BID Qty: 180 1RF prenat.vits,campos,[id number] Tablet 1 tab PO DAILY Discontinued (DME) Ketone Urine Test Strip See Rx Instructions .MEDSUPPLY Qty: 50 5RF Rx Instructions: As directed to check ketones in urine once a day in the morning (DME) OneTouch Verio test strips Strip See Rx Instructions .MEDSUPPLY Qty: 150 5RF Rx Instructions: check blood sugars 4 times a day (DME) lancets [OneTouch Delica Plus Lancet] 33 gauge misc See Rx Instructions .MEDSUPPLY Qty: 150 5RF Rx Instructions: As directed check blood sugars 4 times a day Discharge Orders: Discharge Order (Routine); Ordered 12/13/24 Ordered By: Sukhwinder Guevara/Other Patient Handouts: Preventing Deep Vein Thrombosis, Understanding Depression Admission Data Admit Date/Time: 12/11/24 05:34 Attending Provider: Yeny Simons Admit Provider: Yeny Simons Primary Care Provider: Yaima Swan Other Providers: Rodrigue Rai Other Interventions: Discharge Summary Assessment (RN) Last Done: 12/13/24 10:50 Coding Level of Care Code 51377 IN/OBS DISCH 30 MIN/LESS
--- NOTE | 2024-12-15 13:12 | Coding Query ---
ANEMIA To promote full compliance with coding requirements relating to patient care, physician participation is requested in all cases of inspector chief uncertainty. Please assist us with the question(s) below: Coding Question(s): The record reflects the following clinical findings: Pt with hemorrhage was administered 2 UPC . If these findings are indicative of anemia, please specify the known or suspected type by placing an "X" within the parenthesis (x). If other, please document type. Examples are: ( ) Acute blood loss anemia (x ) Acute Postoperative blood loss anemia ( ) Acute postoperative anemia due to dilutional fluids ( ) Chronic blood loss anemia ( ) Anemia of chronic disease ( ) Aplastic anemia ( ) Anemia due to renal disease ( ) Anemia in neoplastic disease ( ) Iron deficient anemia ( ) Anemia, unspecified or other ( ) Other: (please specify) Thank you [facility]gett [facility]
== END 2024-12-13 13:00 | disposition home or self-care (01) | DRG 787 ==
LOC: 4S1 05:34 → 4E2 16:15 → EDSTATUS 12-18 07:30